=== PATIENT | female | born 1975 | race African-American/Black ===

== ENCOUNTER 2023-05-30 14:44 | Emergency (ER) | payer OTHER, BC ==
[~2023-05-30] VITALS: Ht 172.7 cm; Wt 95.3 kg
[2023-05-30 14:52] VITALS: BP_SYST 143; PULSE 66; RESP 18; TEMP 98.3; O2SAT 100
[2023-05-30] MEDS: IBUPROFEN 600 MG TABLET PO ONE (16:31)
[2023-05-30] MEDS ORDERED: IBUP-1969 PO (17:47)
[2023-05-30] MEDS ORDERED: METH-634 PO (17:47)
[2023-05-30 18:01] VITALS: BP_SYST 143; PULSE 66; RESP 18; TEMP 98.3; O2SAT 100
[2023-05-30] MEDS: KETOROLAC TROMETHAMINE 60 MG/2 ML VIAL IM ONE (18:01)
== END 2023-05-30 18:06 | disposition home or self-care (01) ==
LOC: SED 14:44
DX: S16.1XXA Strain of muscle, fascia and tendon at neck level, initial encounter (principal); S09.90XA Unspecified injury of head, initial encounter; V89.2XXA Person injured in unspecified motor-vehicle accident, traffic, initial encounter; Y93.89 Activity, other specified; Y92.89 Other specified places as the place of occurrence of the external cause; Y99.8 Other external cause status
CPT/HCPCS: 99285; 70450; 72125; 81025; 96372; J1885